=== PATIENT | male | born 1945 | race Caucasian/White ===

== ENCOUNTER 2018-02-03 07:29 | Day surgery (SDC) | payer MEDICARE, BC ==
[~2018-02-03 07:29] MED LIST: Lactated Ringers 1,000 ML IV SCH; Lidocaine 1%/Sod Bicarbonate in NS 8.4% 1 ML Syringe IDERM PRN; Sodium Chloride 0.9% 10 ML Syringe FLUSH PRN
[2018-02-03] MEDS ORDERED: Bupivacaine 0.25% 30 ML SDV ONE (07:47)
[2018-02-03] MEDS ORDERED: Lidocaine 1% 30 ML SDV ONE (07:47)
--- NOTE | 2018-02-13 22:01 | PCM.OPNOTE ---
- General Post-Op/Procedure Note Date of Surgery/Procedure: 02/03/18 Operative Procedure(s): left trigger thumb release Pre Op Diagnosis: left thumb stenosing tenosynovitis Post-Op Diagnosis: Same Anesthesia Technique: Local Primary Surgeon: Arnoldo Cotton Machine Cloth Examiner: Harriet Goetz in mLs: 5 Complications: None Condition: Good
--- NOTE | 2018-02-13 22:31 | OR ---
DATE OF OPERATION: 02/03/2018 SURGEON: Arnoldo Cotton MD OPERATION PERFORMED: Left trigger thumb release. PREOPERATIVE DIAGNOSIS: Left thumb stenosing tenosynovitis. POSTOPERATIVE DIAGNOSIS: Left thumb stenosing tenosynovitis. ANESTHESIA: Local only. FORGE TENDER: Harriet Goetz PA-C. ESTIMATED BLOOD LOSS: 5 mL. COMPLICATIONS: None. CONDITION: Stable. DESCRIPTION OF PROCEDURE: The patient was identified in the preop holding area. Proper site was marked and identified by the surgeon. The patient was taken back to the operative theater where after adequate anesthesia, the patient's left upper extremity was sterilely prepped and draped in the usual sterile fashion. OR time-out was performed. The patient did not receive antibiotics and not indicated for soft tissue hand procedure. At this time, 1% lidocaine without epinephrine and 0.25% Marcaine without epinephrine were used to anesthetize the area over the A1 suzie and the proximal crease of the left thumb. After this was properly anesthetized, a transverse incision was made. Blunt dissection was taken down to the A1 suzie. [place] retractors were placed both radially and ulnarly to protect the neurovascular bundles. At this time, a [place] blade was used to resect the A1 suzie under direct visualization. At this time, tenotomy scissors were used for release both proximally and distally more to make sure there were no significant adhesions. The tendon was then brought through the wound bed. There were no significant adhesions for need for tenolysis. At this time, adequate saline was irrigated through the wound. A 4-0 nylon simple suture was used for closure of the skin. The patient tolerated the procedure well, sent to the PACU in stable condition. MMODAL /[id number]
== END 2018-02-03 09:33 | disposition home or self-care (01) ==
LOC: JD.SDS 07:29
PROVIDERS: ATTEND Orthopaedic Surgery
DX: M65.312 Trigger thumb, left thumb (principal); M65.842 Other synovitis and tenosynovitis, left hand; Z79.899 Other long term (current) drug therapy
CPT/HCPCS: 26055; J3490